=== PATIENT | male | born 2000 | race African-American/Black ===

== ENCOUNTER 2023-03-23 23:22 | Emergency (ER) | payer SELFPAY ==
[~2023-03-23] VITALS: Ht 182.9 cm; Wt 64.9 kg
[2023-03-23 23:44] VITALS: TEMP 98.1
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
[2023-03-23] MEDS ORDERED: IBUPROFEN 400 MG TABLET ONE (23:57)
[2023-03-24] MEDS ORDERED: IBUPROFEN 400 MG TABLET PO ONE
[2023-03-24 00:39] VITALS: BP 124/70
== END 2023-03-24 00:40 | disposition home or self-care (01) ==
LOC: ER 23:25
DX: S90.31XA Contusion of right foot, initial encounter (principal); X58.XXXA Exposure to other specified factors, initial encounter; Y93.89 Activity, other specified; Y92.89 Other specified places as the place of occurrence of the external cause; Y99.8 Other external cause status
CPT/HCPCS: 73630-TC